=== PATIENT | male | born 1945 | race Caucasian/White ===

== ENCOUNTER → 2016-09-07 | Outpatient (CLI) | payer OTHER, MEDICARE ==
[~2016-09-07] VITALS: Ht 172.7 cm; Wt 117.9 kg
[~2016-09-07] MED LIST: FISH OIL 1,001000 M2 PO; LIPITOR 20 MG T20 M1 PO; SYMBICORT80 MCG/4.1 INH; VENTOLIN HFA 1818 GM INH
--- NOTE | ~2016-09-07 | CATHLAB ---
[facility] [place] [address] INVASIVE PROCEDURE REPORT Name: WHITLEY COTTER Room #: REG CL [facility]#: [id number] Admission: 09/07/16 Attend Phys: Billy Ramon, Discharge: Date of : 43 Date of Service: 09/07/16910 Report #: [id number] THIS REPORT FOR: //name// CC: Billy Steen PROCEDURE: Left heart coronary angiography. INDICATIONS: Chest pain, abnormal stress study. DESCRIPTION OF PROCEDURE: The potential benefits and risks of the procedure were discussed at length with the patient, who understood. Full written and informed consent was obtained. The patient was brought into the catheterization suite, where his right groin was prepped and draped in the sterile fashion. He was sedated with intravenous Versed; 1% Xylocaine was used as local anesthetic. A 6-Marshallese sheath was placed in the right femoral artery by the modified Seldinger technique. Left heart catheterization was performed with a 6-Marshallese angled pigtail catheter. A single plain ventriculogram was performed in the STALLWORTH view. Pullback gradients were measured across the aortic valve. Selective coronary angiography was performed with a 6-Marshallese left and right 4 cm Sourav coronary catheter. All diagnostic catheters removed. A hand injection was performed to the right groin sheath with placement of a Mynx device upon removal of the sheath. The patient remained in excellent condition at the conclusion of the procedure, with good right groin hemostasis and intact distal pulses. RESULTS: LEFT HEART HEMODYNAMICS: 1. Left ventricular systolic pressure 140. 2. Left ventricular end-diastolic pressure of 22. 3. Aortic valve, no gradient was present on pullback across the aortic valve. Central aortic pressure 140/70. ANGIOGRAPHY: LEFT VENTRICULOGRAM: Ventriculography demonstrated normal global and regional left ventricular systolic function. Mitral regurgitation was absent. The ejection fraction was estimated at 65%. SELECTIVE CORONARY ANGIOGRAPHY: 1. Left main: Left main was normal. 2. Left anterior descending: The left anterior descending was a moderately large vessel that extended to the apex. There was mild 10% to 20% plaquing in the proximal portion of the LAD. 3. The circumflex was large, but nondominant and gave rise to 2 marginal branches and its branches exhibited mild plaquing. 4. The right coronary: The right coronary was dominant with a 30% to 40% proximal right coronary plaque. The remaining portion of the right coronary exhibited minimal scattered plaquing, including a fairly large posterior [facility] [address] [place] [address] INVASIVE PROCEDURE REPORT Name: WHITLEY COTTER Room #: REG CL [facility]#: [id number] Admission: 09/07/16 Attend Phys: Billy Ramon, Discharge: Date of : 43 Date of Service: 09/07/16 0911 Report #: [id number] descending and posterolateral branch. SUMMARY: 1. Normal global and regional left ventricular systolic function. Ejection fraction 65%. 2. Normal left main. 3. Mild plaquing of the LAD and circumflex. 4. The right coronary was dominant with a 30% to 40% proximal right coronary stenosis. Based on this study, continued pharmacologic therapy and aggressive risk factor modification is recommended. <ELECTRONICALLY SIGNED> By: Billy Ramon MD, FACC 09/08/16 0728 0911 [id number] Billy Ramon MD, FACC /nt
[2016-09-07 07:03] VITALS: BP 153/55
[2016-09-07 07:14] LABS: HEMOGLOBIN 14.6 gm/dL (14.0-18.0); MCH 29.7 pg (26.0-34.0); MCHC 33.9 g/dL (28.0-37.0); MCV 87.6 fL (80.0-100.0); RBC 4.91 mil/uL (4.50-6.00); WBC 8.1 thou/uL (4.0-11.0)
[2016-09-07 07:20] LABS: CALCIUM 8.7 mg/dL (8.5-10.1); POTASSIUM 3.9 mmol/L (3.5-5.1)
== END | disposition home or self-care (01) ==
LOC: CATH 06:36
PROVIDERS: Internal Medicine
DX: I25.10 Atherosclerotic heart disease of native coronary artery without angina pectoris (principal); J45.909 Unspecified asthma, uncomplicated; I10 Essential (primary) hypertension; E78.5 Hyperlipidemia, unspecified

== ENCOUNTER → 2020-08-18 | Outpatient (CLI) | payer OTHER, MEDICARE | LOC: HYPER 10:52 | PROVIDERS: ATTEND Emergency Medicine Emergency Medical Services | DX: T81.31XA Disruption of external operation (surgical) wound, not elsewhere classified, initial encounter (principal); E66.01 Morbid (severe) obesity due to excess calories; I25.10 Atherosclerotic heart disease of native coronary artery without angina pectoris; I10 Essential (primary) hypertension; J44.9 Chronic obstructive pulmonary disease, unspecified; Z79.52 Long term (current) use of systemic steroids; Z92.21 Personal history of antineoplastic chemotherapy; Z87.891 Personal history of nicotine dependence; Z96.612 Presence of left artificial shoulder joint; Z85.07 Personal history of malignant neoplasm of pancreas; Z90.81 Acquired absence of spleen; Z68.34 Body mass index [BMI] 34.0-34.9, adult; Y92.238 Other place in hospital as the place of occurrence of the external cause; Y83.8 Other surgical procedures as the cause of abnormal reaction of the patient, or of later complication, without mention of misadventure at the time of the procedure ==

== ENCOUNTER → 2020-08-31 | Outpatient (CLI) | payer OTHER, MEDICARE | LOC: HYPER 08:42 | PROVIDERS: ATTEND Emergency Medicine Emergency Medical Services | DX: T81.31XD Disruption of external operation (surgical) wound, not elsewhere classified, subsequent encounter (principal); E66.01 Morbid (severe) obesity due to excess calories; I25.10 Atherosclerotic heart disease of native coronary artery without angina pectoris; I10 Essential (primary) hypertension; J44.9 Chronic obstructive pulmonary disease, unspecified; Z79.52 Long term (current) use of systemic steroids; Z92.21 Personal history of antineoplastic chemotherapy; Z87.891 Personal history of nicotine dependence; Z96.612 Presence of left artificial shoulder joint; Z85.07 Personal history of malignant neoplasm of pancreas; Z90.81 Acquired absence of spleen; Z68.34 Body mass index [BMI] 34.0-34.9, adult; Y83.8 Other surgical procedures as the cause of abnormal reaction of the patient, or of later complication, without mention of misadventure at the time of the procedure ==